=== PATIENT | female | born 1935 | race Native Hawaiian/Other Pacific Islander ===

== ENCOUNTER 2017-07-22 15:31 | Emergency (ER) | payer OTHER ==
[~2017-07-22] VITALS: Ht 157.5 cm; Wt 65.8 kg
== END 2017-07-22 17:27 | disposition home or self-care (01) ==
LOC: ED 15:31
PROC: 2W3CX1Z Immobilization of Right Lower Arm using Splint (ICD-10-PCS; principal; 2017-07-22)
DX: S62.101A Fracture of unspecified carpal bone, right wrist, initial encounter for closed fracture (principal); W17.89XA Other fall from one level to another, initial encounter; Y92.89 Other specified places as the place of occurrence of the external cause
CPT/HCPCS: 96372; 99282; J1885

== ENCOUNTER 2017-10-23 16:03 | Outpatient (CLI) | payer OTHER ==
[2017-10-23] MEDS ORDERED: LISI10TA11 PO (16:25)
[2017-10-23] MEDS ORDERED: CARDURA8 MG PO (16:26)
[2017-10-23] MEDS ORDERED: ESCITALOPRAM10 MG PO (16:26)
[2017-10-23] MEDS ORDERED: CHLO10CA63 PO (16:26)
[2017-11-18] MEDS ORDERED: ESCI10TA PO (10:12)
== END 2017-10-23 16:16 | disposition short-term general hospital (02) ==
LOC: AMB 16:03
DX: S89.82XA Other specified injuries of left lower leg, initial encounter (principal); W01.198A Fall on same level from slipping, tripping and stumbling with subsequent striking against other object, initial encounter; Y92.091 Bathroom in other non-institutional residence as the place of occurrence of the external cause
CPT/HCPCS: A0425; A0427

== ENCOUNTER 2017-10-23 16:17 | Emergency (ER) | payer OTHER ==
[~2017-10-23] VITALS: Ht 157.5 cm; Wt 64.9 kg
[2017-10-23 16:20] VITALS: TEMP 97.5
[2017-10-23] MEDS ORDERED: LISI10TA11 PO (16:25)
[2017-10-23] MEDS ORDERED: CHLO10CA63 PO (16:26)
[2017-10-23] MEDS ORDERED: CARDURA8 MG PO (16:26)
[2017-10-23] MEDS ORDERED: ESCITALOPRAM10 MG PO (16:26)
[2017-10-23 18:03] VITALS: BP 149/60
[2017-11-18] MEDS ORDERED: ESCI10TA PO (10:12)
== END 2017-10-23 18:04 | disposition home or self-care (01) ==
LOC: ED 16:17
DX: S80.11XA Contusion of right lower leg, initial encounter (principal); W18.09XA Striking against other object with subsequent fall, initial encounter; Y92.012 Bathroom of single-family (private) house as the place of occurrence of the external cause
CPT/HCPCS: 96374; 96375; 99284; J2175; J2405

== ENCOUNTER 2017-11-11 14:51 | Emergency (ER) | payer OTHER ==
[~2017-11-11] VITALS: Ht 157.5 cm; Wt 65.8 kg
[~2017-11-11 14:51] MED LIST: CARDURA8 MG PO; CHLO10CA63 PO; ESCITALOPRAM10 MG PO; LISI10TA11 PO
[2017-11-11 14:54] VITALS: TEMP 98.4
[2017-11-11 15:48] LABS: PLATELET COUNT 222 K/uL (152-353)
[2017-11-11 15:55] LABS: POTASSIUM 4.2 mmol/L (3.6-5.2)
[2017-11-11 17:15] VITALS: BP 168/81
[2017-11-11] MEDS ORDERED: MIRALAX3350 N1 PO (18:16)
[2017-11-11] MEDS ORDERED: HYDR5TAB9 PO (18:21)
[2017-11-18] MEDS ORDERED: ESCI10TA PO (10:12)
== END 2017-11-11 17:15 | disposition other institution (70) ==
LOC: ED 14:51
PROVIDERS: Family Medicine
DX: R45.851 Suicidal ideations (principal); F32.89 Other specified depressive episodes
CPT/HCPCS: 36415; 80053; 80307; 80320; 80329; 81000; 85027; 93005; 99285

== ENCOUNTER 2018-04-08 12:24 | Emergency (ER) | payer OTHER, MEDICARE ==
[~2018-04-08] VITALS: Ht 157.5 cm; Wt 66.7 kg
[~2018-04-08 12:24] MED LIST changes: +ESCI10TA PO; +HYDR5TAB9 PO; +MIRALAX3350 N1 PO
[2018-04-08 14:27] LABS: PLATELET COUNT 266 K/uL (152-353)
[2018-04-08 14:33] LABS: POTASSIUM 4.9 mmol/L (3.6-5.2)
[2018-04-08 15:51] VITALS: BP 157/71; TEMP 98.5
== END 2018-04-08 15:59 | disposition home or self-care (01) ==
LOC: ED 12:24
PROVIDERS: Family Medicine
DX: K21.9 Gastro-esophageal reflux disease without esophagitis (principal); K29.70 Gastritis, unspecified, without bleeding
CPT/HCPCS: 74022; 80053; 81000; 85027; 99283

== ENCOUNTER 2018-06-10 08:14 | Emergency (ER) | payer OTHER, MEDICARE ==
[~2018-06-10] VITALS: Ht 157.5 cm; Wt 68.0 kg
[2018-06-10 08:15] VITALS: TEMP 97.9
[2018-06-10] MEDS ORDERED: VENLAFAXINE75 M2 PO (08:43)
[2018-06-10] MEDS ORDERED: ZANTAC300 MG PO (08:44)
[2018-06-10] MEDS ORDERED: OMEPRAZOLE DR40 MG PO (08:44)
[2018-06-10] MEDS ORDERED: ROPINIROLE1 MG PO (08:45)
[2018-06-10] MEDS ORDERED: DOXAZOSIN2 M1 PO (08:45)
[2018-06-10 10:27] LABS: PLATELET COUNT 358 K/uL (152-353)
[2018-06-10 10:35] LABS: POTASSIUM 4.2 mmol/L (3.6-5.2)
[2018-06-10 14:22] VITALS: BP 174/76
== END 2018-06-10 16:30 | disposition short-term general hospital (02) ==
LOC: ED 08:14
PROVIDERS: Family Medicine
DX: R79.89 Other specified abnormal findings of blood chemistry (principal); R06.09 Other forms of dyspnea; R00.0 Tachycardia, unspecified
CPT/HCPCS: 36415; 80053; 81000; 84484; 85027; 93005; 99284

== ENCOUNTER 2018-06-10 16:23 | Outpatient (CLI) | payer OTHER, MEDICARE ==
[~2018-06-10 16:23] MED LIST changes: +DOXAZOSIN2 M1 PO; +OMEPRAZOLE DR40 MG PO; +ROPINIROLE1 MG PO; +VENLAFAXINE75 M2 PO; +ZANTAC300 MG PO
== END 2018-06-10 17:01 | disposition short-term general hospital (02) ==
LOC: AMB 16:23
DX: R06.02 Shortness of breath (principal); R79.89 Other specified abnormal findings of blood chemistry
CPT/HCPCS: A0425; A0427

== ENCOUNTER 2018-06-23 10:21 | Emergency (ER) | payer OTHER, MEDICARE ==
[~2018-06-23] VITALS: Ht 157.5 cm; Wt 68.0 kg
[2018-06-23 11:00] LABS: PLATELET COUNT 362 K/uL (152-353)
[2018-06-23 12:45] VITALS: BP 141/81; TEMP 97.7
== END 2018-06-23 12:45 | disposition short-term general hospital (02) ==
LOC: ED 10:21
PROVIDERS: Emergency Medicine
DX: R07.89 Other chest pain (principal); R79.89 Other specified abnormal findings of blood chemistry; D64.89 Other specified anemias; Z98.890 Other specified postprocedural states
CPT/HCPCS: 36415; 80053; 81000; 82550; 82553; 83735; 83880; 84484; 85027; 93005; 99284

== ENCOUNTER 2018-06-23 12:49 | Outpatient (CLI) | payer OTHER, MEDICARE | END 2018-06-23 13:32 | disposition short-term general hospital (02) | LOC: AMB 12:49 | DX: I21.4 Non-ST elevation (NSTEMI) myocardial infarction (principal); R06.02 Shortness of breath; R79.89 Other specified abnormal findings of blood chemistry | CPT/HCPCS: A0425; A0427 ==

== ENCOUNTER 2019-05-06 15:12 | Emergency (ER) | payer OTHER, MEDICARE ==
[~2019-05-06] VITALS: Ht 157.5 cm; Wt 63.5 kg
[2019-05-06 18:44] VITALS: BP 152/38; TEMP 97.9
== END 2019-05-06 18:44 | disposition home or self-care (01) ==
LOC: ED 15:12
PROC: 0HQEXZZ Repair Left Lower Arm Skin, External Approach (ICD-10-PCS; principal; 2019-05-06)
PROC: 0HQ1XZZ Repair Face Skin, External Approach (ICD-10-PCS; 2019-05-06)
DX: S09.8XXA Other specified injuries of head, initial encounter (principal); S01.112A Laceration without foreign body of left eyelid and periocular area, initial encounter; S61.512A Laceration without foreign body of left wrist, initial encounter; W01.198A Fall on same level from slipping, tripping and stumbling with subsequent striking against other object, initial encounter; Y92.098 Other place in other non-institutional residence as the place of occurrence of the external cause
CPT/HCPCS: 90471; 90715; 99284; J1885

== ENCOUNTER 2019-05-22 14:30 | Inpatient (IN) | payer OTHER, MEDICARE ==
[~2019-05-22] VITALS: Ht 162.6 cm; Wt 62.7 kg
[2019-05-22] VITALS (10 sets, daily range): BP systolic 91–116; BP diastolic 27–39; TEMP 97.3–98.6; Ht 162.6 cm; Wt 62.7 kg
[2019-05-22] MEDS ORDERED: AMIODARONE HYD200 MG PO (14:53)
[2019-05-22] MEDS ORDERED: ASPIRIN 8181 MG PO (14:54)
[2019-05-22] MEDS ORDERED: BRILINTA90 MG PO (14:54)
[2019-05-22] MEDS ORDERED: HYDR10TA47A PO (14:55)
[2019-05-22] MEDS ORDERED: ENTRESTO 24-261 TAB PO (14:56)
[2019-05-22] MEDS ORDERED: KLOR-CON M1010 MEQ PO (14:56)
[2019-05-22] MEDS ORDERED: FLUOXETINE20 MG PO (14:57)
[2019-05-22] MEDS ORDERED: SENNA8.6 M1 PO (14:58)
[2019-05-22] MEDS ORDERED: FURO40TA93 PO (14:58)
[2019-05-22] MEDS ORDERED: DOK100 MG PO (14:59)
[2019-05-22] MEDS ORDERED: LITHIUM CARB150 MG PO (15:00)
[2019-05-22] MEDS ORDERED: CARV6.25 PO (15:00)
[2019-05-22] MEDS ORDERED: PROCHLORPER10 MG PO (15:05)
[2019-05-22] MEDS ORDERED: ALPR0.5T24 PO (15:07)
[2019-05-22 15:31] LABS: POTASSIUM 3.7 mmol/L (3.6-5.2)
[2019-05-22 15:36] LABS: PARTIAL THROMBOPLASTIN TIME 21.2 SECONDS (24.5-33.6)
[2019-05-22 15:48] LABS: PLATELET COUNT 394 K/uL (152-353)
[2019-05-23] VITALS (15 sets, daily range): BP systolic 101–123; BP diastolic 32–53; TEMP 97.5–98.9
[2019-05-23 17:35] LABS: PLATELET COUNT 327 K/uL (152-353)
[2019-05-23 17:38] LABS: POTASSIUM 3.5 mmol/L (3.6-5.2)
[2019-05-24] VITALS: BP 134/48; TEMP 97.5
[2019-05-24 04:00] VITALS: BP 137/58; TEMP 97.7
[2019-05-24 05:55] LABS: PLATELET COUNT 298 K/uL (152-353)
[2019-05-24 06:03] LABS: POTASSIUM 3.4 mmol/L (3.6-5.2)
[2019-05-24 08:04] VITALS: BP 136/52; TEMP 97.9
[2019-05-24 12:06] VITALS: BP 121/50; TEMP 97.7
[2019-05-24 16:26] VITALS: BP 125/36; TEMP 98.1
[2019-05-24 20:00] VITALS: BP 129/53; TEMP 98.3
[2019-05-25] VITALS: BP 124/48; TEMP 97.7
[2019-05-25 04:00] VITALS: BP 92/58; TEMP 98.2
[2019-05-25 05:32] LABS: PLATELET COUNT 293 K/uL (152-353)
[2019-05-25 05:43] LABS: POTASSIUM 3.8 mmol/L (3.6-5.2)
[2019-05-25 08:00] VITALS: BP 119/77; TEMP 97.8
[2019-05-25 12:00] VITALS: BP 117/52; TEMP 98.6
[2019-05-25 16:00] VITALS: BP 139/60; TEMP 97.2
[2019-05-25 20:00] VITALS: BP 104/45; TEMP 98
[2019-05-26] VITALS (9 sets, daily range): BP systolic 120–147; BP diastolic 47–72; TEMP 97.6–98.6
[2019-05-26 04:40] LABS: PLATELET COUNT 267 K/uL (152-353)
[2019-05-26 10:25] LABS: PLATELET COUNT 258 K/uL (152-353)
[2019-05-26] MEDS ORDERED: ALPR0.5T24 PO (10:52)
[2019-05-26] MEDS ORDERED: XANAX 1 MG PO (10:52)
== END 2019-05-26 12:55 | DRG 812 ==
LOC: ED 14:40 → MED/SURG 17:10 → ED 17:10 → MED/SURG 19:48
PROVIDERS: Family Medicine; ADMIT Internal Medicine Endocrinology, Diabetes & Metabolism
PROC: 30233N1 Transfusion of Nonautologous Red Blood Cells into Peripheral Vein, Percutaneous Approach (ICD-10-PCS; principal; 2019-05-23)
PROC: 30233N1 Transfusion of Nonautologous Red Blood Cells into Peripheral Vein, Percutaneous Approach (ICD-10-PCS; 2019-05-26)
DX: D64.89 Other specified anemias (principal); I25.10 Atherosclerotic heart disease of native coronary artery without angina pectoris; F41.8 Other specified anxiety disorders; G89.4 Chronic pain syndrome; K21.9 Gastro-esophageal reflux disease without esophagitis; I25.2 Old myocardial infarction; I10 Essential (primary) hypertension; E11.9 Type 2 diabetes mellitus without complications
CPT/HCPCS: 36415; 80048; 80053; 82728; 83540; 83550; 85027; 85610; 85730; 86850; 86900; 86901; 86922; 94760; 99283; J1644; J1940; P9016

== ENCOUNTER 2019-05-27 10:36 | Outpatient (CLI) | payer OTHER, MEDICARE ==
[~2019-05-27] VITALS: Ht 162.6 cm; Wt 61.8 kg
[~2019-05-27 10:36] MED LIST changes: +ALPR0.5T24 PO; +AMIODARONE HYD200 MG PO; +ASPIRIN 8181 MG PO; +BRILINTA90 MG PO; +CARV6.25 PO; +DOK100 MG PO; +ENTRESTO 24-261 TAB PO; +FLUOXETINE20 MG PO; +FURO40TA93 PO; +HYDR10TA47A PO; +KLOR-CON M1010 MEQ PO; +LITHIUM CARB150 MG PO; +PROCHLORPER10 MG PO; +SENNA8.6 M1 PO; +XANAX 1 MG PO
[2019-05-27 10:45] VITALS: BP 118/62; TEMP 98.4
[2019-05-27 11:30] VITALS: BP 137/63; TEMP 98.6
== END 2019-05-27 11:35 | disposition home or self-care (01) ==
LOC: INF 10:36
DX: D50.9 Iron deficiency anemia, unspecified (principal)
CPT/HCPCS: 96365; Q0138

== ENCOUNTER 2019-06-03 11:15 | Inpatient (IN) | payer OTHER, MEDICARE | END 2019-06-07 14:45 | disposition short-term general hospital (02) | LOC: PAVB 11:15 | PROVIDERS: ADMIT Family Medicine | DX: D64.9 Anemia, unspecified (principal); I50.84 End stage heart failure; R26.2 Difficulty in walking, not elsewhere classified; Z74.1 Need for assistance with personal care; F03.91 Unspecified dementia, unspecified severity, with behavioral disturbance; E11.9 Type 2 diabetes mellitus without complications; I50.43 Acute on chronic combined systolic (congestive) and diastolic (congestive) heart failure; G89.4 Chronic pain syndrome ==

== ENCOUNTER 2019-06-07 14:49 | Emergency (ER) | payer OTHER, MEDICARE ==
[2019-06-07] VITALS (7 sets, daily range): BP systolic 106–161; BP diastolic 44–106; TEMP 97.9
[~2019-06-07] VITALS: Ht 162.6 cm; Wt 62.6 kg
[2019-06-07 15:45] LABS: POTASSIUM 5.4 mmol/L (3.6-5.2)
[2019-06-07 15:47] LABS: PARTIAL THROMBOPLASTIN TIME 22.1 SECONDS (24.5-33.6)
[2019-06-07 17:21] LABS: PLATELET COUNT 223 K/uL (152-353)
== END 2019-06-07 20:10 | disposition expired ==
LOC: ED 14:49 → ICU 17:00 → ED 20:10
PROVIDERS: Hospitalist
PROC: 0T9B70Z Drainage of Bladder with Drainage Device, Via Natural or Artificial Opening (ICD-10-PCS; principal; 2019-06-07)
PROC: 5A12012 Performance of Cardiac Output, Single, Manual (ICD-10-PCS; 2019-06-07)
DX: A41.9 Sepsis, unspecified organism (principal); J18.9 Pneumonia, unspecified organism; I60.9 Nontraumatic subarachnoid hemorrhage, unspecified; I50.9 Heart failure, unspecified
CPT/HCPCS: 36415; 36600; 51702; 80053; 81000; 82550; 82805; 83605; 83880; 84484; 85027; 85610; 85730; 87040; 87205; 92950; 93005; 94664; 96361; 96365; 96372; 96375; 99285; 99291; J0171; J0282; J0461; J1815; J1940; J2001; J3360; J3370